=== PATIENT | male | born 1940 | race Caucasian/White ===

== ENCOUNTER → 2017-06-18 | Outpatient (CLI) | payer MEDICARE ==
[~2017-06-18] MED LIST: AEC81 PO; ALBU2TAB4 PO; ALBU8.5H8 IH; COLE625 PO; FLAX1000 PO; FURO40TA5 PO; HYDR-4105 PO; LOSA25TA21 PO; MULT-40 PO; PIOG15TA6 PO; POTA20TA82 PO
== END | disposition home or self-care (01) ==
LOC: SHCH 10:00
PROVIDERS: ATTEND Internal Medicine Cardiovascular Disease
DX: I08.3 Combined rheumatic disorders of mitral, aortic and tricuspid valves (principal); Z95.2 Presence of prosthetic heart valve
CPT/HCPCS: 93306

== ENCOUNTER → 2019-05-05 | Outpatient (CLI) | payer OTHER ==
[~2019-05-05] MED LIST changes: -FLAX1000 PO; +FLAX100020 PO; -FURO40TA5 PO; +INDO-16 PO; -LOSA25TA21 PO; +LOSA25TA41 PO; +METO-408 PO; -MULT-40 PO; +PRED20TA3 PO
== END | disposition home or self-care (01) ==
LOC: SHCH 10:10
PROVIDERS: ATTEND Internal Medicine Cardiovascular Disease
DX: I07.1 Rheumatic tricuspid insufficiency (principal); I50.20 Unspecified systolic (congestive) heart failure; Z95.1 Presence of aortocoronary bypass graft; Z95.2 Presence of prosthetic heart valve
CPT/HCPCS: 93306